=== PATIENT | female | born 1990 | race Two or more races ===

== ENCOUNTER 2023-02-19 15:09 | Emergency (ER) | payer MEDICAID ==
[~2023-02-19] VITALS: Ht 167.6 cm; Wt 54.0 kg
[2023-02-19] MEDS ORDERED: ONDANSETRON HCL 4MG/2ML INJ IV STA (15:54)
[2023-02-19] MEDS ORDERED: ONDANSETRON HCL 4MG/2ML INJ IV NR (15:55)
[2023-02-19] MEDS ORDERED: LOPERAMIDE HCL 2MG CAPSULE PO ONE (16:00)
[2023-02-19] MEDS ORDERED: SODIUM CHLORIDE 0.9% 1,000 ML IV ONE (16:00)
[2023-02-19 17:22] LABS: BASOPHILS % 0.4 % (0.0-2.0); EOSINOPHILS % 0.1 % (0.0-5.0); HEMATOCRIT. 37.1 % (36.0-48.0); LYMPHOCYTES % 13.4 % (20.0-50.0); MEAN CORPUSCULAR HEMOGLOBIN 20.5 pg (28.0-32.0); MEAN CORPUSCULAR VOLUME 63.5 fL (81.0-99.0); MEAN PLATELET VOLUME 8.7 fl (7.4-10.4); MONOCYTES % 5.1 % (2.0-8.0); PLATELET 378 x1000/uL (130-400); RED BLOOD CELL COUNT 5.84 mill/uL (4.2-5.4); RED CELL DISTRIBUTION WIDTH 16.8 % (11.6-14.6)
[2023-02-19 17:25] LABS: CLARITY URINE CLEAR (CLEAR); COLOR URINE DARK YELLOW (YELLOW); KETONES URINE 3+ (NEGATIVE); LEUKOCYTE ESTERASE URINE NEGATIVE (NEGATIVE); NITRITE URINE NEGATIVE (NEGATIVE); OCCULT BLOOD URINE NEGATIVE (NEGATIVE); PH URINE 6.5 (4.5-8.0); PROTEIN URINE 1+ (NEGATIVE); SPECIFIC GRAVITY URINE 1.033 (1.005-1.030)
[2023-02-19 17:28] LABS: CHLORIDE 106 mEq/L (98-107)
[2023-02-19 17:30] LABS: INR 1.1; PROTHROMBIN TIME 11.4 sec (9.6-11.0)
[2023-02-19 17:41] LABS: HCG SCREEN NEGATIVE
[2023-02-19 17:57] LABS: PLATELET ESTIMATE NORMAL
[2023-02-19] MEDS ORDERED: POTASSIUM CHLORIDE 20MEQ TABLET SR PO NR (18:45)
[2023-02-20 02:14] VITALS: BP 138/74
== END 2023-02-20 02:16 | disposition home or self-care (01) ==
LOC: ER 15:09
DX: E87.6 Hypokalemia (principal); R11.2 Nausea with vomiting, unspecified; F32.A Depression, unspecified
CPT/HCPCS: 36415; 80053; 81003; 83690; 84703; 85025; 85610; 96361; 96374; 99283; J2405; J7030; Z7610